=== PATIENT | male | born 1940 | race Caucasian/White ===

== ENCOUNTER 2017-01-23 11:59 | Emergency (ER) | payer MEDICARE, OTHER ==
[2017-01-23] MEDS ORDERED: Sodium Chloride 0.9% 10 ML Syringe FLUSH PRN (12:28)
[2017-01-23] MEDS ORDERED: Labetalol 100 MG/20 ML MDV IVPUSH ONE (12:41)
--- NOTE | 2017-01-23 12:47 | EDM.PDOC ---
ED HISTORY OF PRESENT ILLNESS - General Chief Complaint: Cardiovascular Problem Stated Complaint: DIZZY,HBP Time Seen by Provider: 01/23/17 12:07 Source of Information: Reports: Patient, RN notes reviewed - History of Present Illness INITIAL COMMENTS - FREE TEXT/NARRATIVE: 76-year-old gentleman comes in with concerns of high blood pressure. He was on medication for high blood pressure or 2 or 3 years ago but now has been off for around 2 years. When up to the bathroom early this morning he was aware of some palpitations. He didn't feel "quite right" check his blood pressure was in the range of 200/106. He a couple of further readings this morning and they also were elevated in the 190/100 range. He called [facility] and they referred here to the ED. He has no chest pain or difficulty breathing. He has not been ill recently in any other way. His states that she has only been to a doctor "a couple of times in his life". - Related Data Allergies/ADRs: Allergies Allergy/AdvReac Type Severity Reaction Status Date / Time No Known Allergies Allergy Verified 01/23/17 12:16 Home Meds: Home Meds Aspirin/Calcium Carbonate/Mag [Aspirin Buffered 325 mg Tab] 650 mg PO BID [History] Lisinopril/Hydrochlorothiazide [Lisinopril-Hctz 10-12.5 mg Tab] 1 each PO DAILY #30 tablet 01/23/17 [Rx] Past Medical History - Past Health History Medical/Surgical History: Denies Medical/Surgical History HEENT History: Reports: Impaired vision Cardiovascular History: Reports: Hypertension Social & Family History - Family History Family Medical History: Noncontributory - Tobacco Use Smoking Status *Q: Never Smoker Second Hand Smoke Exposure: No - Caffeine Use Caffeine Use: Reports: Coffee, Tea - Alcohol Use Days Per Week of Alcohol Use: 7 Number of Drinks Per Day: 1 Total Drinks Per Week: 7 - Recreational Drug Use Recreational Drug Use: No ED ROS GENERAL - Review of Systems Review Of Systems: See Below Constitutional: Denies: fever, chills, diaphoresis HEENT: Denies: Throat pain, Throat swelling Respiratory: Denies: Shortness of Breath, Pleuritic Chest Pain Cardiovascular: Denies: Chest pain GI/Abdominal: Denies: Abdominal pain, Nausea, Vomiting Musculoskeletal: Denies: leg pain Skin: Denies: rash, erythema Neurological: Reports: Dizziness (Mild, nonspecific). Denies: Headache, Numbness, Tingling ED EXAM, GENERAL - Physical Exam Exam: See Below General Appearance: alert, no apparent distress Eye Exam: bilateral eye: PERRL Throat/Mouth: Normal inspection, Normal oropharynx Head: No: facial swelling Neck: supple, full range of motion, other (No JVD) Respiratory/Chest: no respiratory distress, lungs clear, normal breath sounds Cardiovascular: regular rate, rhythm GI/Abdominal: soft, non tender. No: guarding Back Exam: No: CVA tenderness (L), CVA tenderness (R) Extremities: normal inspection, pedal edema (Very mild bilateral). No: increased warmth, redness Skin Exam: Warm, Dry, Normal color EKG INTERPRETATION EKG Date: 01/23/17 Rhythm: NSR [place]: normal P-wave: present QRS: normal ST-T: normal Course - Vital Signs Last Recorded V/S: Last Vital Signs Temp 97.5 F 01/23/17 12:02 Pulse 70 01/23/17 14:38 Resp 18 01/23/17 14:38 BP 176/98 H 01/23/17 14:38 Pulse Ox 97 01/23/17 14:38 - Orders/Labs/Meds Orders: Active Orders 24 hr Category Date Time Status EKG 12 Lead [EKG Documentation Completion] [RC] STAT Care 01/23/17 12:29 Active Peripheral IV Care [RC] . DIRECTED Care 01/23/17 12:29 Active Peripheral IV Insertion Adult [OM.PC] Stat Oth 01/23/17 12:29 Ordered Labs: Laboratory Tests 01/23/17 01/23/17 Range/Units 12:25 12:25 WBC 7.39 (4.23-9.07) K/mm3 RBC 5.39 (4.63-6.08) M/mm3 Hgb 15.6 (13.7-17.5) gm/L Hct 47.7 (40.1-51.0) % MCV 88.5 (79.0-92.2) fl MCH 28.9 (25.7-32.2) pg MCHC 32.7 (32.2-35.5) g/dl RDW Std Deviation 47.6 H (35.1-43.9) fL Plt Count 229 (163-337) K/mm3 MPV 9.8 (9.4-12.3) fl Neut % (Auto) 72.4 H (34.0-67.9) % Lymph % (Auto) 15.6 L (21.8-53.1) % [place] % (Auto) 9.9 (5.3-12.2) % Eos % (Auto) 1.2 (0.8-7.0) Baso % (Auto) 0.5 (0.1-1.2) % Neut # (Auto) 5.35 (1.78-5.38) K/mm3 Lymph # (Auto) 1.15 L (1.32-3.57) K/mm3 Clare # (Auto) 0.73 (0.30-0.82) K/mm3 Eos # (Auto) 0.09 (0.04-0.54) K/mm3 Baso # (Auto) 0.04 (0.01-0.08) K/mm3 Sodium 142 (136-145) mEq/L Potassium 4.2 (3.5-5.1) mEq/L Chloride 105 (98-107) mEq/L Carbon Dioxide 27 (21-32) mEq/L Anion Gap 14.2 (5-15) BUN 18 (7-18) mg/dL Creatinine 1.4 H (0.7-1.3) mg/dL Est Cr Clr Drug Dosing 40.51 mL/min Estimated GFR (MDRD) 49 (>60) mL/min BUN/Creatinine Ratio 12.9 L (14-18) Glucose 120 H (83-115) mg/dL Calcium 9.0 (8.5-10.1) mg/dL Total Bilirubin 0.3 (0.2-1.0) mg/dL AST 27 (15-37) U/L ALT 53 (16-63) U/L Alkaline Phosphatase 104 (46-116) U/L Total Protein 7.5 (6.4-8.2) g/dl Albumin 3.6 (3.4-5.0) g/dl Globulin 3.9 gm/dL Albumin/Globulin Ratio 0.9 L (1-2) Meds: Medications Discontinued Medications Generic Name Dose Route Start Last Admin Trade Name Freq PRN Reason Stop Dose Admin Labetalol HCl 20 mg 01/23/17 12:41 01/23/17 12:47 Normodyne IVPUSH 01/23/17 12:42 20 mg ONETIME ONE Administration Protocol Sodium Chloride 10 ml 01/23/17 12:28 01/23/17 12:50 Saline Flush FLUSH 10 ml ASDIRECTED PRN Administration Keep Vein Open - Re-Assessments/Exams Free Text/Narrative Re-Assessment/Exam: 01/23/17 16:39. We did give him labetalol 20 mg IV shortly after arrival. With that his blood pressure did come down to a more reasonable level. He remained asymptomatic while here in the ED. Labs as documented. Discharge instructions as documented Departure - Departure Time of Disposition: 14:22 Disposition: Home, Self-Care 01 Condition: fair Clinical Impression: Hypertension Qualifiers: Hypertension type: essential hypertension Qualified Code(s): I10 - Essential ( primary) hypertension Prescriptions: Lisinopril/Hydrochlorothiazide [Lisinopril-Hctz 10-12.5 mg Tab] 1 each PO DAILY #30 tablet Referrals: PCP,None [Primary Care Provider] - Forms: ED Department Discharge Additional Instructions: Lisinopril/hydrochlorothiazide once daily, continue to avoid salty food, followup with Dr. Mimi HOUGH [facility] [place] in about 10-14 days for recheck, call [phone] for appointment. Check your blood pressure once or twice daily and keep a record. Bring those readings with you for your next clinic appointment. It is preferable that your blood pressure come down gradually. If you're getting consistent readings above 200/110 return to ED. - My Orders Last 24 Hours: My Active Orders 01/23/17 12:29 EKG 12 Lead [EKG Documentation Completion] [RC] STAT Peripheral IV Care [RC] . DIRECTED Peripheral IV Insertion Adult [OM.PC] Stat - Assessment/Plan Last 24 Hours: My Active Orders 01/23/17 12:29 EKG 12 Lead [EKG Documentation Completion] [RC] STAT Peripheral IV Care [RC] . DIRECTED Peripheral IV Insertion Adult [OM.PC] Stat
[2017-01-23 14:39] VITALS: BP 176/98
== END 2017-01-23 14:38 | disposition home or self-care (01) ==
LOC: JD.ED 11:59
DX: I10 Essential (primary) hypertension (principal); Z79.82 Long term (current) use of aspirin; Z79.899 Other long term (current) drug therapy
CPT/HCPCS: 36415; 80053; 85025; 93005; 96374; 99284; J7050

== ENCOUNTER 2024-02-29 08:47 | Day surgery (SDC) | payer MEDICARE, OTHER ==
[2024-02-29] MEDS: Polymyxin B/Trimethoprim 10 ML Bottle EYERT SCH (07:49)
[2024-02-29] MEDS: Brimonidine 0.2% Ophth Soln 5 ML Bottle EYERT SCH (07:53)
[2024-02-29] MEDS: Phenylephrine 2.5% Ophth Soln 2 ML Bot EYERT SCH (07:58)
[2024-02-29] MEDS: Tropicamide 1% Ophth Soln 3 ML Bottle EYERT SCH (08:02)
[2024-02-29] MEDS: Tetracaine HCl/PF 0.5% 4 ML Bottle EYEBOTH SCH (09:19)
[2024-02-29] MEDS: Lidocaine 1% PF 2 ML SDV INJECT SCH (09:39)
[2024-02-29] MEDS: Cefuroxime 10 MG/ML SYRINGE EYERT SCH (09:45)
[2024-02-29] MEDS: Pilocarpine 4% Ophth Soln 15 ML Bot EYERT SCH (09:54)
[2024-02-29 10:06] VITALS: BP 172/89; PULSE 73
== END 2024-02-29 10:01 | disposition home or self-care (01) ==
LOC: JD.SDS 08:47
PROVIDERS: ATTEND Ophthalmology
DX: H25.813 Combined forms of age-related cataract, bilateral (principal); H21.81 Floppy iris syndrome; H21.41 Pupillary membranes, right eye; I10 Essential (primary) hypertension; Z79.899 Other long term (current) drug therapy
CPT/HCPCS: 66982; A9270; J0697; J3490

== ENCOUNTER 2024-03-28 07:53 | Day surgery (SDC) | payer MEDICARE, OTHER ==
[2024-03-28] MEDS: Polymyxin B/Trimethoprim 10 ML Bottle EYELF SCH (08:22)
[2024-03-28] MEDS: Brimonidine 0.2% Ophth Soln 5 ML Bottle EYELF SCH (08:26)
[2024-03-28] MEDS: Phenylephrine 2.5% Ophth Soln 2 ML Bot EYELF SCH (08:32)
[2024-03-28] MEDS: Tropicamide 1% Ophth Soln 3 ML Bottle EYELF SCH (08:35)
[2024-03-28] MEDS: Tetracaine HCl/PF 0.5% 4 ML Bottle EYEBOTH SCH (09:28)
[2024-03-28] MEDS: Lidocaine 1% PF 2 ML SDV INJECT SCH (09:55)
[2024-03-28] MEDS: Cefuroxime 10 MG/ML SYRINGE EYELF SCH (10:00)
[2024-03-28] MEDS: Pilocarpine 4% Ophth Soln 15 ML Bot EYELF SCH (10:08)
[2024-03-28 10:25] VITALS: BP 155/80; PULSE 76
== END 2024-03-28 10:19 | disposition home or self-care (01) ==
LOC: JD.SDS 07:53
PROVIDERS: ATTEND Ophthalmology
DX: H25.812 Combined forms of age-related cataract, left eye (principal); H21.81 Floppy iris syndrome; H21.42 Pupillary membranes, left eye; H52.31 Anisometropia; H02.831 Dermatochalasis of right upper eyelid; H02.834 Dermatochalasis of left upper eyelid; H34.231 Retinal artery branch occlusion, right eye; H57.813 Brow ptosis, bilateral; I10 Essential (primary) hypertension; Z79.899 Other long term (current) drug therapy
CPT/HCPCS: 66982; A9270; J0697; J3490